=== PATIENT | male | born 1935 | race Caucasian/White ===

== ENCOUNTER 2016-11-14 18:43 | Emergency (ER) | payer MEDICARE ==
[2016-11-14 18:52] VITALS: BP 172/105
--- NOTE | 2016-11-14 19:56 | UC ---
Catrina Perez Thomas, scribed for Matthew Scott MD on 11/14/16 at 1912 . Skin Complaint HPI - HPI Summary HPI Summary: The pt is an 81 y/o M accompanied by and presenting to [facility]/o a diffuse pruritic rash that began a few weeks ago. The rash is located in his bilateral flanks, legs, and buttocks. The rashes have worsened in the last few days. He denies that this rash is painful. The rash is aggravated and alleviated by nothing. The patient has treated the rash with Benadryl prior to arrival. He denies any other complaints at this time. PMHx: polymyalgia rheumatic. PSHx: R hip replacement. SHx: no smoking, no alcohol use, no illicit drug use. He is on Prednisone 2mg for his polymyalgia rheumatic. - History of Current Complaint Chief Complaint: [facility] Time Seen by Provider: 11/14/16 19:01 Stated Complaint: RASH Hx Obtained From: Patient, Family/Intern Retail - in room Onset/Duration: Lasting Weeks - 3, Still Present, Worse Since - last few days Timing: Constant Pain Intensity: 0 Pain Scale Used: 0-10 Numeric Character: Pruritus Aggravating: Nothing Alleviating: Nothing Associated Signs & Symptoms: Positive: Negative - Allergy/Home Medications Allergies/Adverse Reactions: Allergies Allergy/AdvReac Type Severity Reaction Status Date / Time No Known Allergies Allergy Verified 11/14/16 18:52 Home Medications: Home Medications Amlodipine Besylate [Norvasc 10 mg tab] 10 mg PO ONCE 11/14/16 [History Confirmed 11/14/16] predniSONE TAB* [Deltasone TAB*] 11/14/16 [History Confirmed 11/14/16] Review of Systems Constitutional: Negative Skin: Other - POS: diffuse pruritic rash that is not painful (onset 3 weeks ago , worsened in the last few days) Eyes: Negative ENT: Negative Respiratory: Negative Cardiovascular: Negative Gastrointestinal: Negative Genitourinary: Negative Motor: Negative Neurovascular: Negative Musculoskeletal: Negative Neurological: Negative Psychological: Negative All Other Systems Reviewed And Are Negative: Yes PMH/Surg Hx/FS Hx/Imm Hx Previously Healthy: No Neurological History: Other - polymyalgia rheumatica Other Neurological History: . - Surgical History Surgical History: Yes Surgery Procedure, Year, and Place: Right hip replacement - Family History Known Family History: Negative: Hypertension, Diabetes - Social History Alcohol Use: Occasionally Substance Use Type: None Smoking Status (MU): Never Smoked Tobacco Physical Exam Triage Information Reviewed: Yes Vital Signs: Initial Vital Signs Temp 98.7 F 11/14/16 18:46 Pulse 82 11/14/16 18:46 Resp 12 11/14/16 18:46 BP 172/105 11/14/16 18:46 Pulse Ox 98 11/14/16 18:46 Vital Signs Reviewed: Yes - Additional Comments General: well-appearing, no pain distress Skin: warm, color reflects adequate perfusion, dry. There is an erythematous rash with 2mm x 2mm diameter that is raised. It has a diffuse distribution, more concentrated in his abdomen and lower back. There are some areas on both legs and both arms. Head: normal Eyes: EOMI, KENA ENT: normal Neck: supple, nontender Respiratory: CTA, breath sounds present Cardiovascular: RRR Abdomen: soft, nontender Bowel: present Musculoskeletal: normal, strength/ROM intact Neurological: normal, sensory/motor intact, A&O x3 Psychological: affect/mood appropriate Course/Dx - Course Course Of Treatment: The pt is an 81 y/o M accompanied by and presenting to [facility] c/o a diffuse pruritic rash that began a few weeks ago. The rash is located in his bilateral flanks, legs, and buttocks. The rashes have worsened in the last few days. He denies that this rash is painful. The rash is aggravated and alleviated by nothing. The patient has treated the rash with Benadryl prior to arrival. He denies any other complaints at this time. PMHx: polymyalgia rheumatic. PSHx: R hip replacement. SHx: no smoking, no alcohol use , no illicit drug use. He is on Prednisone 2mg for his polymyalgia rheumatic. High blood pressure noted. The patient will be discharged home. He was diagnosed with a rash. He was prescribed Medrol Dosepack. THE RASH IS BILATERAL ; NOT IN A DERMATOMAL DISTRIBUTION. THE PATIENT FEELS WELL. IT ITCHES AND IS NOT PAINFUL. MOST PROBABLY A CONTACT DERMATITIS. RX MEDROL DOSE GEORGI, F/U WITH PMD; GO TO ED IF WORSE. - Diagnoses Provider Diagnoses: Rash; Blood pressure under poor control. Discharge - Discharge Plan Condition: Stable Disposition: HOME Prescriptions: Methylprednisolone [Medrol Dosepak 4 MG*] 4 mg PO .SEE GEORGI INSTRUCTION #1 georgi Patient Education Materials: Acute Rash (ED) Additional Instructions: FOLLOW UP WITH YOUR DOCTOR. RETURN TO THE EMERGENCY DEPARTMENT FOR ANY WORSENING OF YOUR CONDITION; FEVER, YOU FEEL ILL OR QUESTIONS OR CONCERNS. Your blood pressure was elevated at this visit. That does not mean you have hypertension, it is probably due to your current condition. Please follow up with your primary care provider. The documentation as recorded by the Catrina garcia Thomas accurately reflects the service I personally performed and the decisions made by me, Matthew Scott MD.
== END 2016-11-14 19:55 | disposition home or self-care (01) ==
LOC: UCEAST 18:43
DX: R21 Rash and other nonspecific skin eruption (principal); R03.0 Elevated blood-pressure reading, without diagnosis of hypertension; M35.3 Polymyalgia rheumatica; Z96.641 Presence of right artificial hip joint
CPT/HCPCS: 99212; G0463

== ENCOUNTER 2017-12-01 14:08 | Emergency (ER) | payer MEDICARE ==
[2017-12-01 15:06] VITALS: BP 149/96
--- NOTE | 2017-12-01 16:23 | RAD ---
INDICATION: Fever x6 days COMPARISON: None TECHNIQUE: PA and lateral views of the chest were obtained. FINDINGS: The heart and mediastinum are normal in size and contour. There is patchy density overlying the left lung. The right lung is grossly clear. There is a mild degree of peribronchial cuffing more apparent on the lateral view chest x-ray. Slight blunting of the left costophrenic angle could be seen in the setting of a small pleural effusion. Visualized bones are normal for the patient's age. There is no radiographic evidence of free air beneath the diaphragm IMPRESSION: 1. PATCHY DENSITY OVERLYING THE LEFT LUNG AND BLUNTING OF THE LEFT COSTOPHRENIC ANGLE COULD BE DUE TO PULMONARY EDEMA WITH A SMALL PLEURAL EFFUSION. ALTERNATIVELY, PATCHY PNEUMONIA IS ALSO WITHIN DIFFERENTIAL. 2. MILD DEGREE OF PERIBRONCHIAL CUFFING COULD BE SEEN IN THE SETTING OF BRONCHITIS.
--- NOTE | 2017-12-01 17:38 | UC ---
HPI Febrile Illness - HPI Summary HPI Summary: Patient complains of flulike symptoms including fever up to 104.4, body aches, headache 6 days. Patient states he has been to alternating Tylenol and ibuprofen without fever control. Denies history of foreign travel, tick bite, cough, sore throat, CP, SOB, N/V/D, abdominal pain, change in urine, change in BM, rash. Medical history is HTN, polymyalgia rheumatica currently taking prednisone. Last antipyretic taken at 2 PM, Tylenol 500 mg. - History of Current Complaint Chief Complaint: UCGeneralIllness Time Seen by Provider: 12/01/17 15:48 Hx Obtained From: Patient, Family/Bulk Folder Onset/Duration: Started Days Ago Timing: Constant Initial Severity: Mild Current Severity: Mild Pain Intensity: 3 Pain Scale Used: 0-10 Numeric Aggravating Factors: Nothing Alleviating Factors: Nothing Associated Signs and Symptoms: Headache, Myalgia - Allergy/Home Medications Allergies/Adverse Reactions: Allergies Allergy/AdvReac Type Severity Reaction Status Date / Time amlodipine Allergy Edema Verified 12/01/17 15:07 Home Medications: Home Medications Ibuprofen 200 mg PO 12/01/17 [History] Losartan TAB* [Cozaar TAB*] 12/01/17 [History] PMH/Surg Hx/FS Hx/Imm Hx Cardiovascular History: Hypertension - Surgical History Surgical History: Yes Surgery Procedure, Year, and Place: Right hip replacement - Family History Known Family History: Negative: Hypertension, Diabetes - Social History Alcohol Use: Daily Substance Use Type: None Smoking Status (MU): Never Smoked Tobacco Review of Systems Constitutional: Fever Skin: Negative Eyes: Negative ENT: Negative Respiratory: Negative Cardiovascular: Negative Gastrointestinal: Negative Genitourinary: Negative Motor: Negative Neurovascular: Negative Musculoskeletal: Myalgia Neurological: Negative Psychological: Negative All Other Systems Reviewed And Are Negative: Yes Physical Exam Triage Information Reviewed: Yes Appearance: Well-Appearing Vital Signs: Initial Vital Signs Temp 97.4 F 12/01/17 15:00 Pulse 95 12/01/17 15:00 Resp 16 12/01/17 15:00 BP 149/96 12/01/17 15:00 Pulse Ox 95 12/01/17 15:00 Vital Signs Reviewed: Yes Eye Exam: Normal Neck exam: Normal Respiratory Exam: Normal Cardiovascular Exam: Normal Abdominal Exam: Normal Musculoskeletal Exam: Normal Neurological Exam: Normal Psychological Exam: Normal Skin Exam: Normal Course/Dx - Course Course Of Treatment: Patient complains of flulike symptoms including fever up to 104.4, body aches, headache 6 days. Patient states he has been to alternating Tylenol and ibuprofen without fever control. Denies history of foreign travel, tick bite, cough, sore throat, CP, SOB, N/V/D, abdominal pain, change in urine, change in BM, rash. Medical history is HTN, polymyalgia rheumatica currently taking prednisone. Last antipyretic taken at 2 PM, Tylenol 500 mg. Physical exam unremarkable. No peripheral edema, abnormal lung sounds. Vital signs normal. Chest x-ray positive for pneumonia. Patient has no significant comorbidities, and vital signs were normal and stable. Discussed alternatives for treatment with patient, including going to the ED for further evaluation. Patient preferred to go home with prescription for antibiotics, and will go to the ED for any new or concerning symptoms, including uncontrolled fever, shortness of breath, chest pain, worsening of symptoms. Patient and understand and appropriately plan and appeared to be responsible decision-makers. Rx for doxycycline 100 mg by mouth twice a day 10 days - Diagnoses Clinic Provider Diagnoses: Pneumonia Discharge - Sign-Out/Discharge Documenting (check all that apply): Patient Departure All imaging exams completed and their final reports reviewed: Yes - chest x-ray pneumonia - Discharge Plan Condition: Stable Disposition: HOME Prescriptions: DOXYcycline CAP(*) [DOXYcycline 100MG CAP(*)] 100 mg PO BID 10 Days #20 cap Patient Education Materials: Pneumonia (ED) Referrals: Song Harden MD [Primary Care Provider] - Additional Instructions: Take antibiotics as directed. Go to the ED for any new or worsening symptoms. - Billing Disposition and Condition Condition: STABLE Disposition: Home - Attestation Statements Provider Attestation: I was available for consult. This patient was seen by the VICTOR HUGO. The patient was not presented to, seen by, or examined by me. -Mack
== END 2017-12-01 17:44 | disposition home or self-care (01) ==
LOC: UCEAST 14:08
DX: J18.9 Pneumonia, unspecified organism (principal); Z96.641 Presence of right artificial hip joint; Z88.8 Allergy status to other drugs, medicaments and biological substances
CPT/HCPCS: 71046; 99212; G0463

== ENCOUNTER 2022-08-31 10:06 | Observation (INO) ==
[2022-08-31 11:47] LABS: ABS Basophils 0.1 10^3/uL (0.0-0.1); ABS Eosinophils 0.4 10^3/uL (0.0-0.5); ABS Lymphocytes 1.4 10^3/uL (1.0-4.8); ABS Monocytes 0.8 10^3/uL (0.0-1.1); ABS Neutrophils 4.7 10^3/uL (1.5-7.6); Eosinophil % 5.9 %; Hematocrit 44.8 % (38-53); Hemoglobin 15.2 g/dL (13.2-16.3); Lymphocyte % 19.1 %; Mean Corpuscular Hemoglobin 31.5 pg (27-33); Mean Corpuscular Hgb Conc 33.9 g/dL (31-36); Mean Corpuscular Volume 92.9 fL (80-97); Mean Platelet Volume 7.5 fL (7.5-11.2); Platelet Count 245 10^3/uL (150-450); Red Blood Count 4.82 10^6/uL (4.06-5.63); Red Cell Distribution Width 13.6 % (12-17); White Blood Count 7.4 10^3/uL (3.6-10.2)
[2022-08-31 11:58] LABS: ALT 10 U/L (7-52); AST 21 U/L (13-39); Albumin 4.2 g/dL (3.2-5.2); Albumin/Globulin Ratio 1.7 (1-3); Alkaline Phosphatase 69 U/L (35-149); Anion Gap 7 mmol/L (2-16); Blood Urea Nitrogen 18 mg/dL (6-24); CO2 Carbon Dioxide 26 mmol/L (22-32); Calcium 9.5 mg/dL (8.6-10.3); Chloride 104 mmol/L (101-111); Creatinine, Serum 0.83 mg/dL (0.67-1.17); Globulin 2.5 g/dL (2-4); Glucose 106 mg/dL (70-100); Lipase < 10 U/L (11.0-82.0); Magnesium 2.1 mg/dL (1.9-2.7); Potassium 4.3 mmol/L (3.5-5.0); Sodium 137 mmol/L (135-145); Total Protein 6.7 g/dL (6.4-8.9); eGFR CKD-EPI 84.7 (>60)
[2022-08-31] MEDS ORDERED: Iohexol 350 (CONTRAST) 500 ML MDV IV ONE (12:02)
[2022-08-31 12:26] LABS: TSH Ultra Thyroid Stim Horm 1.75 mcIU/mL (0.34-5.60)
[2022-08-31 14:06] LABS: C Reactive Protein 7.55 mg/L (<8.01)
[2022-09-01 06:05] LABS: ABS Basophils 0.1 10^3/uL (0.0-0.1); ABS Eosinophils 0.7 10^3/uL (0.0-0.5); ABS Lymphocytes 1.8 10^3/uL (1.0-4.8); ABS Monocytes 0.9 10^3/uL (0.0-1.1); ABS Neutrophils 4.3 10^3/uL (1.5-7.6); Eosinophil % 8.8 %; Hematocrit 40.6 % (38-53); Hemoglobin 13.6 g/dL (13.2-16.3); Lymphocyte % 23.3 %; Mean Corpuscular Hemoglobin 31.1 pg (27-33); Mean Corpuscular Hgb Conc 33.6 g/dL (31-36); Mean Corpuscular Volume 92.4 fL (80-97); Mean Platelet Volume 7.7 fL (7.5-11.2); Platelet Count 217 10^3/uL (150-450); Red Blood Count 4.39 10^6/uL (4.06-5.63); Red Cell Distribution Width 13.9 % (12-17); White Blood Count 7.8 10^3/uL (3.6-10.2)
[2022-09-01 06:17] LABS: Calcium 8.9 mg/dL (8.6-10.3); Creatinine, Serum 0.88 mg/dL (0.67-1.17); eGFR CKD-EPI 83.2 (>60)
[2022-09-01 15:50] VITALS: BP 169/91
[2022-09-01 17:23] LABS: Body Fluid WBC 1720 /mcL
[2022-09-01 17:56] LABS: Body Fluid Mono 5 %; Body Fluid Other Cells 10; Body Fluid Source Pleural Fluid; Body Fluid Total Cells Counted 200
[2022-09-01 17:57] LABS: Body Fluid Appearance Cloudy; Body Fluid Color Yellow
[2022-09-03 12:10] LABS: Lactate Dehydrogenase, BF 345 U/L
[2022-09-03 12:12] LABS: Albumin, BF 3.2 g/dL; Fluid Type, Albumin PLEURAL; Fluid Type, Protein, Total PLEURAL; Glucose, BF 53 mg/dL; Total Protein, BF 4.3 g/dL
== END 2022-09-01 17:25 | disposition home or self-care (01) ==
LOC: ED 10:06 → EDHOLD 10:06 → SUATTDRO 13:25 → MED 14:45
PROVIDERS: ADMIT Internal Medicine; ATTEND Internal Medicine